=== PATIENT | male | born 1945 | race Caucasian/White ===

== ENCOUNTER → 2019-11-06 09:56 | Outpatient (CLI) | payer MEDICARE, SELFPAY ==
[2019-11-06 12:52] LABS: Coronavirus 19 IgG Antibody Negative (Negative); Coronavirus 19 IgM Antibody Negative (Negative)
== END ==
PROVIDERS: Visit Provider Ophthalmology
DX: Z01.818 Encounter for other preprocedural examination (principal)
CPT/HCPCS: 36415; 86328

== ENCOUNTER 2019-11-07 08:30 | Day surgery (SDC) | payer MEDICARE, SELFPAY ==
[2019-11-02 17:26] VITALS: BMI 25.1
[2019-11-07 09:14] VITALS: BP 197/79; PULSE 50; RESP 16; TEMP 36.4; O2SAT 100
[2019-11-07 10:23] VITALS: BP 184/84; PULSE 48; RESP 20; O2SAT 100
[2019-11-07 10:28] VITALS: BP 171/78; PULSE 46; RESP 20; O2SAT 100
[2019-11-07 10:33] VITALS: BP 170/77; PULSE 46; RESP 18; O2SAT 100
[2019-11-07 10:38] VITALS: BP 167/78; PULSE 45; RESP 18; O2SAT 100
[2019-11-07 10:42] VITALS: BP 180/84; PULSE 67; RESP 18; TEMP 36.4; O2SAT 100
== END 2019-11-07 10:52 | disposition home or self-care (01) ==
LOC: OR 08:34
PROVIDERS: PCP Family Medicine; Visit Provider Ophthalmology
PROC: (CPT 66984; principal; 2019-11-07 11:00)
DX: H26.9 Unspecified cataract (principal); I25.10 Atherosclerotic heart disease of native coronary artery without angina pectoris; Z95.1 Presence of aortocoronary bypass graft; Z79.82 Long term (current) use of aspirin; Z79.899 Other long term (current) drug therapy; E78.5 Hyperlipidemia, unspecified; I10 Essential (primary) hypertension; I25.2 Old myocardial infarction
CPT/HCPCS: 66984; V2632

== ENCOUNTER → 2019-11-20 11:02 | Outpatient (CLI) | payer MEDICARE, SELFPAY ==
[2019-11-20 13:19] LABS: Coronavirus 19 IgG Antibody Negative (Negative); Coronavirus 19 IgM Antibody Negative (Negative)
== END ==
PROVIDERS: Visit Provider Ophthalmology
DX: Z01.818 Encounter for other preprocedural examination (principal); H26.9 Unspecified cataract
CPT/HCPCS: 36415; 86328

== ENCOUNTER 2019-11-21 07:31 | Day surgery (SDC) | payer MEDICARE, SELFPAY ==
[2019-11-15 08:49] VITALS: BMI 25.1
[2019-11-21 08:23] VITALS: BP 150/76; PULSE 61; RESP 18; TEMP 36.3; O2SAT 97
[2019-11-21 09:33] VITALS: BP 155/70; PULSE 51; RESP 20; O2SAT 99
[2019-11-21 09:38] VITALS: BP 146/68; PULSE 50; RESP 20; O2SAT 97
[2019-11-21 09:43] VITALS: BP 142/67; PULSE 50; RESP 18; O2SAT 98
[2019-11-21 09:48] VITALS: BP 154/72; PULSE 51; RESP 18; O2SAT 97
[2019-11-21 10:05] VITALS: BP 156/75; PULSE 53; RESP 18; TEMP 36.3; O2SAT 100
== END 2019-11-21 10:05 | disposition home or self-care (01) ==
LOC: OR 07:34
PROVIDERS: PCP Family Medicine; Visit Provider Ophthalmology
DX: H26.9 Unspecified cataract (principal); I10 Essential (primary) hypertension; E78.5 Hyperlipidemia, unspecified; Z79.82 Long term (current) use of aspirin; Z79.899 Other long term (current) drug therapy
CPT/HCPCS: 66984; V2632

== ENCOUNTER 2020-04-20 09:51 | Emergency (ER) | payer MEDICARE, SELFPAY ==
[2020-04-20 09:59] VITALS: BP 151/73; PULSE 81; RESP 18; O2SAT 99; BMI 25.7
[2020-04-20 10:03] VITALS: BP 151/73; PULSE 81; RESP 18; TEMP 36.7; O2SAT 99; BMI 25.9
--- NOTE | 2020-04-20 10:09 | HMH.EDUTC ---
[facility] [place] Disposition Clinical Impression: UTI (urinary tract infection) Qualifiers: Urinary tract infection type: site unspecified Hematuria presence: with hematuria Qualified Code(s): N39.0 - Urinary tract infection, site not specified Disposition: Home, Self-Care Condition on Discharge: Good Instructions: Urinary Tract Infection, DI for Urinary Tract Infection (UTI), Ciprofloxacin Additional Instructions: *Increase fluids. Water not Soda or Tea *Start antibiotic immediately and be sure to take as ordered for the FULL length of time although you should start to see improvement over the next 48 hours *Pyridium as needed Remember this medication will turn your urine [place]. This is normal but it will stain what ever it gets on *You should not use Pyridium for more than 48 hours. If so , follow up with your primary physician to review urine culture and ensure that antibiotic is adequate for infection *Be SURE to follow up anytime for new or worsening symptoms with your family doctor. AND in 48 hours for urine culture results with your family doctor, if you do not have a doctor then you may call back to the [facility] for urine culture results and further treatment. We do recommend that you choose and establish care with a Primary Care Physician. AND follow up with them in 10-14 days to repeat UA to ensure infection is resolved and blood no longer present *Be sure to let your PCP know that we sent urine cultures from the [facility] so they can follow up to ensure that you area the on the correct antibiotic Call your doctor office and make appointment for 48 hours (2 days from today) to follow up and get the results of your urine culture and further treatment Make sure to follow up immediately if any problems or complications and follow up in the next 48 hours Return if needed Straight to ER if any life threatening symptoms Prescriptions: Ciprofloxacin HCl [Cipro 500mg Tab] 500 mg PO BID 10 Days #20 tab Transmission Status: Received by [facility] Phenazopyridine HCl [Pyridium 200mg Tablet] 200 pow PO TID #6 tab Transmission Status: Received by [facility] Referrals: Lester Joyner MD [Primary Care Provider] - As needed Lamberto Cruz MD [Staff Physician] - Time of Disposition: 10:17 Medical Decision Making - Shaggy Inquiry Pt receiving controlled substance: No Shaggy was queried for this patient: No Vital Signs: 04/20/20 09:59 04/20/20 10:03 04/20/20 10:25 Temperature 98.0 F 98.0 F Temperature Source Oral Oral Pulse Rate 81 Pulse Rate [Left Radial] 81 81 Respiratory Rate 18 18 18 Blood Pressure 151/73 H Blood Pressure [Right Arm] 151/73 H 151/73 H Blood Pressure Mean [Right Arm] 99 99 Blood Pressure Source Automatic Cuff Blood Pressure Source [Right Arm] Automatic Cuff Automatic Cuff Blood Pressure Position Sitting Blood Pressure Position [Right Arm] Sitting Sitting 02 Sat by Pulse Oximetry 99 99 Oxygen Delivery Method Room Air Room Air Room Air - Lab Data Lab results reviewed: Yes: I reviewed the patient's lab results. Lab Results 04/20/20 09:56: Urine Color Dark yellow, Urine Appearance Clear, Urine pH 5.5, Ur Specific [place] 1.030, Urine Protein 1+, Urine Glucose (UA) Negative, Urine Ketones Negative, Urine Blood 3+, Urine Nitrate Negative, Urine Bilirubin 1+ A, Urine Urobilinogen 1, Ur Leukocyte Esterase 2+ A Orders (Tests/Meds): ORDERS Category Date Time Status Urine Culture Stat Micro 04/20/20 09:58 Received [facility] [place] HPI - General Stated complaint: pOSSIBLE uti Time Seen by Provider: 04/20/20 10:09 Mode of Arrival: Ambulatory Source of Information: Patient Limitations: No Limitations Description of Symptoms (Recalled from Triage Doc. by RN): c/o burning when he urinates and he has trouble when he has to urinate. HEENT Symptoms (Recalled from RN notes): No Resp Symptoms (Recalled from RN notes): No Skin Symptoms (Recalled from RN notes): No MS Symptoms (Recalled from RN note
[2020-04-20 10:25] VITALS: BP 151/73; PULSE 81; RESP 18; TEMP 36.7; O2SAT 99
[2020-04-20 11:21] LABS: Apearance,Urine Clear (Clear); PH,Urine 5.5 (5.0-8.5); Protein,Urine 1+ (Negative)
[2020-04-20 11:22] LABS: Bilirubin,Urine 1+ (Negative); Blood, Urine 3+ (Negative); Color,Urine Dark Yellow (Yellow); Glucose,Urine (UA) Negative (Negative); Ketones,Urine Negative (Negative); UTC Leukocyte Esterase,Urine 2+ (Negative); UTC Nitrate,Urine Negative (Negative); Urobilinogen,Urine 1 EU/dl (0.2)
== END 2020-04-20 10:26 | disposition home or self-care (01) ==
PROVIDERS: Emergency Provider Nurse Practitioner; PCP Family Medicine
DX: N30.00 Acute cystitis without hematuria (principal); I10 Essential (primary) hypertension; E78.5 Hyperlipidemia, unspecified; I25.2 Old myocardial infarction; Z79.899 Other long term (current) drug therapy
CPT/HCPCS: 81003; 87086; 87088; 87186; 99201

== ENCOUNTER → 2020-07-09 12:23 | Outpatient (CLI) | payer MEDICARE, SELFPAY ==
--- NOTE | 2020-07-09 12:48 | CT_ITS ---
PROCEDURE: CT ABDOMEN W CON CLINICAL HISTORY: UPPER ABD PAIN Epigastric pain and nausea COMPARISON: CT ABDPELW/O CT ABD PELVIS W/O CONTRAST from 06/05/2016 TECHNIQUE: Axial images obtained with sagittal and coronal reformats. All CT scans at the facility use one or more dose reduction, viz: automated exposure control, ma/kV adjustment per patient size (including targeted exams where dose is matched to indication, i.e. head), or iterative reconstruction technique. FINDINGS: Atelectatic changes are present in the lung bases. There are multiple hypodense hepatic lesions which have developed since 06/05/2016. At least 5 lesions are present. Largest lesion is in the right hepatic lobe superiorly segment 7 measuring 2.4 cm. These are suspicious for metastatic foci. The spleen, adrenal glands, and pancreas have an unremarkable appearance. There is a 3 cm left renal cyst. Unremarkable appearing gallbladder. No intestinal obstruction or free air. No evidence of appendicitis. There is colonic diverticulosis but no evidence of diverticulitis. No acute bony findings. IMPRESSION: Multiple liver lesions suspicious for metastatic disease. Dictated by: Raghu Mae MD 07/09/2020 14:11 Raghu Mae MD in [place] 07/09/2020 14:11
[2020-07-09 12:59] LABS: Blood Urea Nitrogen 24 mg/dl (9-20); Estimated Glomerular Filt Rate 83 ml/min (>60); GFR (African American) 100 ML/MIN (>60)
== END ==
PROVIDERS: Visit Provider Family Medicine
DX: R10.10 Upper abdominal pain, unspecified (principal)
CPT/HCPCS: 36415; 74160; 82565; 84520; Q9967

== ENCOUNTER → 2020-07-11 14:08 | Outpatient (CLI) | payer MEDICARE, SELFPAY ==
--- NOTE | 2020-07-11 14:12 | US_ITS ---
PROCEDURE: US LIVER CLINICAL INDICATION: ABN CT OF LIVER COMPARISON: CT CT ABDOMEN W CON from 07/09/2020 FINDINGS: Multiple liver lesions are noted on the previous CT scan. Despite many maneuvers these areas are not well demonstrated by ultrasound. The lesion in the lower aspect of the right hepatic lobe was felt to be identified at approximately 2 cm. This area shows some increased echogenicity. These could be due to hemangiomas. Suggest patient have an MRI with hemangioma protocol before any biopsy is performed. Fall reviewing the CT scan that the patient had there was noted to be some soft tissue density along the descending portion of the duodenum. This projected medially and could be due to a duodenal mass or duodenal diverticulum. This is along the medial portion of the descending duodenum proximal to the expected ampullary region. This could be further evaluated also with MRI. This is along the lateral portion of the head of the pancreas. IMPRESSION: 1. Liver lesions are not well delineated by ultrasound. Only 1 lesion is noted in the lower aspect of the liver. Suggest MRI of the liver and pancreas with hemangioma/pancreatic protocol without and with enhancement. 2. Possible duodenal/ampullary mass versus duodenal diverticulum. Further evaluation is recommended. Dictated by: Raghu Mae MD 07/11/2020 15:16 Raghu Mae MD in [place] 07/11/2020 15:16
== END ==
PROVIDERS: PCP Family Medicine; Visit Provider Family Medicine
DX: R93.2 Abnormal findings on diagnostic imaging of liver and biliary tract (principal)
CPT/HCPCS: 76705

== ENCOUNTER → 2020-07-22 08:32 | Outpatient (CLI) | payer MEDICARE, SELFPAY | PROVIDERS: PCP Family Medicine; Visit Provider Family Medicine | DX: D37.6 Neoplasm of uncertain behavior of liver, gallbladder and bile ducts (principal) ==

== ENCOUNTER → 2020-07-24 10:25 | Outpatient (CLI) | payer MEDICARE, SELFPAY ==
--- NOTE | 2020-07-24 10:31 | MR_ITS ---
PROCEDURE: MR ABDOMEN WO/W CON CLINICAL INDICATION: LIVER MASS COMPARISON: CT ABDPELW/O CT ABD PELVIS W/O CONTRAST from 06/05/[address] ABDOMEN W CON from 07/09/2020 US US LIVER from 07/11/2020 TECHNIQUE: Routine multiplanar multi echo sequences are performed without gadolinium enhancement. FINDINGS: Images are slightly degraded due to motion artifact. There are multiple T2 hyperintense and T1 hypointense lesions in segments 5, 6, 7 and 8 noted in the right lobe of the liver, the largest in the segment 5 measuring 2.3 times 2.1 centimeters. These lesions demonstrate diffusion hyperintensity without evidence of restricted diffusion. Postcontrast images demonstrate peripheral nodular enhancement, demonstrates the centripetal filling on the subsequent delayed phase images. No evidence of arterial enhancement or washout is noted. The postcontrast 15 minutes delay images demonstrate near complete filling of the lesions. These findings are suggestive of hemangiomas. The gallbladder is unremarkable. No intra or extrahepatic biliary dilation. The portal vein appears unremarkable. There is a focal area of heterogeneous T2 hyperintensity noted at the head of the pancreas, corresponds to the known hypodensity lesion noted in the prior CT, abuts the ampulla. There is minor diffusion hyperintensity noted. This focal heterogeneous signal intensity lesion measures approximately 2.1 x 1.4 centimeters. Post-contrast images demonstrate heterogeneous enhancement on the venous and delayed phase images. No evidence of pancreatic ductal dilation. The rest of the pancreas appears normal. No significant peripancreatic lymphadenopathy is noted. T2 hyperintense lesions are noted in the kidneys bilaterally, demonstrate no evidence of enhancement, likely represent cysts. The visualized large and small bowel loops are unremarkable. Visualized lung bases are clear. IMPRESSION: Multiple T2 hyperintense liver lesions with progressive peripheral nodular enhancement on multiphasic contrast-enhanced images are suggestive of hemangiomas. No evidence of abnormal arterial enhancement or washout is noted. Follow-up with CT of the abdomen and pelvis with contrast in 3 months is recommended to evaluate for size stability. Focal lesion at the head of the pancreas measuring 2.1 x 1.4 centimeters, demonstrates heterogeneous enhancement on the post-contrast images. Pancreatic neoplasm cannot be excluded. ERCP should be considered for further evaluation. Close follow-up with MRI is recommended in 2-3 months. ERCP should be considered Dictated by: Evy Morelos 07/26/2020 11:08 Evy Morelos in [place] 07/26/2020 11:08
== END ==
PROVIDERS: PCP Family Medicine; Visit Provider Family Medicine
DX: R10.10 Upper abdominal pain, unspecified (principal); R16.0 Hepatomegaly, not elsewhere classified
CPT/HCPCS: 74183; A9576

== ENCOUNTER → 2020-11-21 09:17 | Outpatient (CLI) | payer MEDICARE, SELFPAY | PROVIDERS: Visit Provider Surgery | DX: Z01.812 Encounter for preprocedural laboratory examination (principal); Z11.52 Encounter for screening for COVID-19; C25.9 Malignant neoplasm of pancreas, unspecified | CPT/HCPCS: U0003 ==